=== PATIENT | female | born 1965 | race Caucasian/White ===

== ENCOUNTER 2016-12-29 15:24 | Emergency (ER) | payer OTHER ==
[~2016-12-29] VITALS: Ht 162.6 cm; Wt 81.5 kg
[~2016-12-29 15:24] MED LIST: ALPR0.5T3 PO; CETI10TA10 PO; LEVO150T22 PO; LTN/10 PO; PIRB200A INH; VENL75CA PO
[2016-12-29 15:31] VITALS: TEMP 37.4; Ht 162.6 cm; Wt 81.5 kg
[2016-12-29] MEDS ORDERED: IBUPROFEN 600 MG TAB PO STA (15:54)
[2016-12-29] MEDS ORDERED: LEVO75TA PO (16:00)
[2016-12-29] MEDS ORDERED: RANI300T2 PO (16:00)
[2016-12-29] MEDS ORDERED: OMEG10002 PO (16:00)
[2016-12-29] MEDS ORDERED: LEVA45AE INH (16:00)
[2016-12-29] MEDS ORDERED: LOSA1TAB PO (16:00)
[2016-12-29] MEDS ORDERED: VENL150C PO (16:00)
--- NOTE | 2016-12-29 16:24 | DIAGNOSTIC IMAGING REPORT ---
RIGHT ELBOW MIN 3 VIEWS ROUTINE HISTORY: 51 years-old Female R elbow pain Right COMPARISON: None available TECHNIQUE: 3 views of the right elbow. FINDINGS: There is no level joint effusion, acute fracture or dislocation. Mild spurring is noted at the expected insertion sites of the common extensor and flexor tendons about the lateral and medial epicondyles respectively. Mild soft tissue swelling is noted about the posterior elbow. IMPRESSION: 1. Mild posterior elbow soft tissue swelling without acute fracture or dislocation. 2. Mild degenerative spurring is noted about the expected insertion sites of the common extensor and flexor tendons. The above report was generated using voice recognition software. It may contain grammatical, syntax or spelling errors. Electronically signed by: Obey Villatoro M.D. 12/29/2016 4:22 PM Dictated Date/Time: 12/29/2016 4:20 PM
--- NOTE | 2016-12-29 16:36 | DIAGNOSTIC IMAGING REPORT ---
C-SPINE ROUTINE 4 OR 5 VIEWS HISTORY: Pain Neck pain COMPARISON: None. FINDINGS: The cervical spine is visualized from C1 through the superior endplate of T1. There is no fracture. No subluxation. Disc spaces are preserved. Mild straightening of cervical curvature consistent with muscular spasm. The neural foramina are patent bilaterally at all levels. IMPRESSION: Muscle spasm. Otherwise negative study. The above report was generated using voice recognition software. It may contain grammatical, syntax or spelling errors. Electronically signed by: Salo Stoddard M.D. 12/29/2016 4:34 PM Dictated Date/Time: 12/29/2016 4:34 PM
[2016-12-29] MEDS ORDERED: CYCL10TA6 PO (17:03)
[2016-12-29 17:17] VITALS: BP 152/82; PULSE 82; O2SAT 94
--- NOTE | 2016-12-29 21:40 | EMERGENCY ROOM VISIT NOTE ---
History First contact with patient: 15:42 Chief Complaint: NECK PAIN Stated Complaint: NECK AND ELBOW PAIN History of Present Illness The patient is a 51 year old female who presents to the Emergency Room with complaints of persistent neck and right elbow pain. The patient reports that she was horsing around and rough play on 12/19. Within a few hours, she started to notice stiffness of her neck. The following day, she also had discomfort over the right elbow. She reports discomfort radiating into the right shoulder blade as well. She denies any worsening pain with deep breathing. 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 She denies any other injuries from this incident, and rates her discomfort an 8 out of 10. The patient is right-hand- dominant. Review of Systems 10 system review was performed and was negative except for pertinent positives and negatives as indicated in history of present illness Past Medical/Surgical History Medical Problems: (1) failed ablation Medical Problems: (1) Asthma, Unspecified (2) Barajas's Esophagus (3) Carpal Tunnel Syndrome (4) Chr Ethmoidal Sinusitis (5) Depressive Disorder Nec (6) failed ablation (7) Hypertension Nos (8) Lumbago (9) Tobacco Use Disorder Surgical Problems: (1) History of carpal tunnel surgery (2) History of delivery (3) History of hysterectomy (4) History of sinus surgery (5) Tubal Ligation Status Social History Smoking Status: Current Every Day Smoker Alcohol Use: occasionally Marital Status: Occupation Status: unemployed Current/Historical Medications Scheduled Alprazolam (Xanax Xr), 0.5 MG PO QAM Cyclobenzaprine Hcl (Flexeril), 10 MG PO TID Levothyroxine Sodium (Synthroid), 75 MCG PO DAILY Losartan Potassium (Cozaar), 25 MG PO DAILY [place]-3 Fatty Acids (Fish Oil), 1,000 MG PO DAILY Ranitidine Hcl (Zantac), 300 MG PO QAM Venlafaxine Hcl (Effexor Xr), 150 MG PO QAM Scheduled PRN Levalbuterol Tartrate (Levalbuterol Tartrate Hfa), 2 PUFFS INH Q4-6HRS PRN for SOB/Wheezing Physical Exam Vital Signs Date Time Temp Pulse Resp B/P (MAP) Pulse Ox O2 Delivery O2 Flow Rate FiO2 12/29/16 17:17 82 18 152/82 94 12/29/16 15:31 37.4 88 18 148/77 95 Physical Exam CONSTITUTIONAL: Healthy and well nourished. Alert and oriented X 3 with positive affect. Patient appears in mild discomfort from pain. HEENT: Normocephalic, atraumatic. Pupils equal, round and reactive. Ears and nares are clear without evidence for epistaxis, hemotympanum, raccoon's eyes or Muñoz sign. No subconjunctival hemorrhage. NECK: Examination shows discomfort to palpation of the cervical musculature and right lower cervical nerve root. Left lateral gaze causes discomfort into the right scapular region. RESPIRATORY: Clear to auscultation bilaterally with no wheezing, crackles, rhonchi or stridor. Deep breathing does not cause any discomfort. CARDIOVASCULAR: Regular rate and rhythm with no murmurs, rubs or gallops. GASTROINTESTINAL: Bowel sounds present in all quadrants. Soft and nontender to palpation. MUSCULOSKELETAL: Examination shows interscapular tenderness to palpation. No scapular winging. The patient has focal tenderness over the right lateral epicondyle. This pain is worsened with resisted extension at the wrist. She has no tenderness to palpation through the forearm or wrist region. Capillary refill is less than 2 seconds. 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 INTEGUMENTARY: No rash or other significant dermatologic conditions noted. NEUROLOGIC: Right hand, fingers and deltoid region are sensory intact. Medical Decision & Procedures ER Provider Diagnostic Interpretation: My interpretation of cervical spine x-ray shows straightening of the lordotic curve. No other fractures appreciated. Radiologist report is as follows: C-SPINE ROUTINE 4 OR 5 VIEWS HISTORY: Pain Neck pain COMPARISON: None. FINDINGS: The cervical spine is visualized from C1 through the superior endplate of T1. There is no fracture. No subluxation. Disc spaces are preserved. Mild straightening of cervical curvature consistent with muscular spasm. The neural foramina are patent bilaterally at all levels. IMPRESSION: Muscle spasm. Otherwise negative study. My interpretation of right elbow x-rays does not show any obvious fractures, dislocation or joint effusion. Radiologist report is as follows: RIGHT ELBOW MIN 3 VIEWS ROUTINE HISTORY: 51 years-old Female R elbow pain Right COMPARISON: None available TECHNIQUE: 3 views of the right elbow. FINDINGS: There is no level joint effusion, acute fracture or dislocation. Mild spurring is noted at the expected insertion sites of the common extensor and flexor tendons about the lateral and medial epicondyles respectively. Mild soft tissue swelling is noted about the posterior elbow. IMPRESSION: 1. Mild posterior elbow soft tissue swelling without acute fracture or dislocation. 2. Mild degenerative spurring is noted about the expected insertion sites of the common extensor and flexor tendons. Medications Administered Medications (Trade) Dose Ordered Sig/Timi Route Start Time Stop Time Status Last Admin Dose Admin Ibuprofen (Motrin Tab) 600 mg NOW STAT PO 12/29/16 15:54 12/29/16 15:56 DC 12/29/16 16:02 600 MG ED Course Patient history and physical exam were performed. Nurse's notes were reviewed. Vital signs were reviewed and normal. The patient was administered ibuprofen at her request for pain. X-rays of the cervical spine shows a cervical spasm with loss of lordotic curvature. No other fractures noted. X-rays of the right elbow were normal. The patient was advised that her neck pain from a cervical spasm. This is also likely causing a mild cervical radiculitis into the right scapular region. The patient was encouraged to intermittently apply heat to the neck. She was instructed to wear a towel wrap around the neck at nighttime. I offered a prescription for prednisone but the patient refused because of the side effects. Regarding her elbow, a wrist lacer was applied. She was encouraged to apply ice to the elbow, and wear the wrist brace when active and working. She was encouraged to follow-up with her PCP or orthopedics for further management if symptoms are not improving within the next week. She was encouraged to alternate ibuprofen and Tylenol as needed for pain control. She refused any prescription analgesics, was happy with plan of care, and rated her pain a 4 out of 10 at the conclusion of my exam. Medical Decision As indicated in the previous section, the patient does have x-ray findings consistent with a cervical spasm. This is likely causing a mild right cervical radiculitis. I do not feel that the patient's elbow pain is from cervical radiculopathy as she has focal tenderness over the lateral epicondyle and has worsened pain with resisted extension at the wrist, consistent with tendinitis. X-rays are not suggestive of other occult fractures. Medication Reconcilliation Current Medication List: was personally reviewed by me Blood Pressure Screening Patient's blood pressure: Normal blood pressure Impression Primary Impression: Cervical paraspinous muscle spasm Additional Impressions: Radiculitis of right cervical region Right elbow tendonitis Departure Information Prescriptions Cyclobenzaprine Hcl (FLEXERIL) 10 Mg Tab 10 MG PO TID for spasm, #15 TAB Prov: Chip Vasquez PA 12/29/16 Referrals Kris Mcgee M.D. (PCP) Patient Instructions [facility] Health Problem Qualifiers
== END 2016-12-29 17:18 | disposition home or self-care (01) ==
LOC: C.EDB 15:25 → C.EDD 17:18
DX: M62.838 Other muscle spasm (principal); M54.12 Radiculopathy, cervical region; M77.9 Enthesopathy, unspecified; J45.909 Unspecified asthma, uncomplicated; K22.70 Barrett's esophagus without dysplasia; J32.2 Chronic ethmoidal sinusitis; I10 Essential (primary) hypertension; M54.5 Low back pain; F17.200 Nicotine dependence, unspecified, uncomplicated; Z90.710 Acquired absence of both cervix and uterus